=== PATIENT | male | born 2000 | race Two or more races ===

== ENCOUNTER 2019-10-22 15:10 | Emergency (ER) | payer SELFPAY ==
--- NOTE | 2019-10-22 16:06 | ER Document Report ---
ED General <NITIN REILLY - Last Filed: 10/22/19 21:12> <RUKHSANA LOPEZ - Last Filed: 10/23/19 16:21> <BRIELLEJOHN JERONIMO - Last Filed: 10/23/19 16:55> - General Chief Complaint: Suicidal Ideation Stated Complaint: SUICIDAL IDEATION Time Seen by Provider: 10/22/19 15:25 Primary Care Provider: [facility] [Outside] - Follow up as needed - HPI Notes: Chief complaint: Intoxication and suicidal ideation HPI: 19-year-old male brought in by EMS after they were called for a disturbed person lying in the middle of a busy street appearing intoxicated, cursing and expressing wish to commit suicide by throwing himself in front of a car. Bystanders state that the patient has psychiatric history although details are unclear and I note that he frequently drinks very heavily. He is an illegal alien and currently being pursued for deportation by ICE. EMS found the patient to be belligerent, swinging at them, spitting and biting and cursing them. Stating that he wanted to be left alone so he could . They were not able to establish an IV on him but were able to chemically restrain him with IM ketamine. They noted that he had an elevated temperature of 102 degrees. They transported him here without further intervention. (NITIN REILLY) - Related Data Allergies/Adverse Reactions: No Known Allergies Allergy (Verified 10/22/19 16:08) Past Medical History - General Cannot obtain history due to: Uncooperative, Altered mental status - Social History Smoking Status: Unknown if Ever Smoked Frequency of alcohol use: Heavy Family History: Reviewed & Not Pertinent <NITIN REILLY - Last Filed: 10/22/19 21:12> Review of Systems - Review of Systems -: Yes ROS unobtainable due to patient's medical condition <NITIN REILLY - Last Filed: 10/22/19 21:12> Physical Exam <NITIN REILLY - Last Filed: 10/22/19 21:12> - Vital signs Vitals: Temp Resp BP Pulse Ox 99.3 F 22 H 141/80 H 100 10/22/19 15:21 10/22/19 15:21 10/22/19 15:21 10/22/19 15:21 - Notes Notes: GENERAL: male appearing approximately stated age currently sedated secondary to ketamine. Heavy odor of alcohol present. SKIN: Good turgor no rashes. Scattered superficial abrasions of all 4 extremities. HEAD: Normocephalic atraumatic. EYES: Pupils mid position equal and sluggishly reactive to light with conjugate gaze present. Conjunctivae and sclerae clear. EARS: CANALS AND TMS CLEAR. NOSE: CLEAR. MOUTH: Moist mucosa. Good dentition. No stridor or edema. No drooling. NECK: Supple. No masses or thyromegaly. No adenopathy. Carotids 2+ without bruits. No JVD. BACK: Symmetrical. CHEST: Respirations unlabored. Breath sounds clear and symmetrical. HEART: Tachycardic. Regular rhythm. No murmur gallop or rub. ABDOMEN: Soft nontender without masses, organomegaly or rebound. Bowel sounds normally active. No bruits. GENITALIA: Deferred. EXTREMITIES: No edema. No calf tenderness. Cap refill less than 1.5 seconds. Dorsalis pedis and posterior tibial pulses 3+ and symmetrical. NEUROLOGICAL: Patient is obtunded. Responds to painful stimuli with symmetrical movement of extremities. GCS 8 (eyes 2 verbal 2 Motor 4) (NITIN REILLY) Course - Laboratory Result Diagrams: 10/22/19 15:20 10/22/19 15:20 - Diagnostic Test Radiology reviewed: Reports reviewed - Noncontrast head CT negative per radiologist. Portable chest x-ray shows no active disease per radiologist. <NITIN REILLY - Last Filed: 10/22/19 21:12> - Laboratory Result Diagrams: 10/22/19 15:20 10/23/19 09:00 <RUKHSANA LOPEZ - Last Filed: 10/23/19 16:21> - Laboratory Result Diagrams: 10/22/19 15:20 10/23/19 09:00 <JOHN HANNAH - Last Filed: 10/23/19 16:55> - Re-evaluation Re-evalutation: 10/22/19 21:14 This man appeared to be primarily under the influence of a large amount of alcohol when he came in. Blood alcohol was measured at 259. He had received ketamine in the field per EMS because of violent aggressive behavior. He required additional medication after he got here including IV Ativan and Haldol. Chen catheter was placed and we noted that his urine specimen was negative for drugs of abuse. We also did acetaminophen and salicylate level and neither were toxic. He had an elevated temperature and I was concerned about the possibility of meningoencephalitis. I vickey blood cultures and empirically gave him IV doses of Rocephin, vancomycin and acyclovir. We note however that he has no skin rashes and his neck is supple. I did an influenza swab and that was negative for influenza a and B. Swab from his throat was however subsequently positive for beta strep. I think this is likely to be the source of his fever. We also note we did a CK and while this was slightly elevated this was not a critical value approximately 325. I consulted the behavioral health service but they were unable to perform immediate assessment because of his level of intoxication. I have gone ahead and given him a dose of IM LA Bicillin to cover him for strep infection. I have also requested a rapid COVID screen which remains pending at this time. I anticipate that as he metabolizes off his alcohol we should be able to clear him medically and then have his behavioral assessment completed. (NITIN REILLY) - Vital Signs Vital signs: Temp Pulse Resp BP Pulse Ox 97.9 F 14 113/78 100 10/23/19 04:00 10/23/19 06:01 10/23/19 06:01 10/23/19 06:01 - Laboratory Laboratory results interpreted by me: 10/22/19 10/22/19 10/22/19 15:20 15:20 16:50 RBC 4.18 L MCH 33.9 H Lymph % (Auto) 48.8 H VBG pH 7.29 L VBG pCO2 23.3 L VBG HCO3 11.0 L Potassium 3.4 L Chloride 113 H Carbon Dioxide 17 L Anion Gap BUN 6 L Glucose 116 H Calcium 7.8 L Creatine Kinase 325 H Urine Blood Salicylates < 1.0 L Acetaminophen < 10 L 10/22/19 10/23/19 18:00 09:00 RBC MCH Lymph % (Auto) VBG pH VBG pCO2 VBG HCO3 Potassium Chloride Carbon Dioxide Anion Gap 4 L BUN 6 L Glucose Calcium 8.2 L Creatine Kinase Urine Blood SMALL H Salicylates Acetaminophen - EKG Interpretation by Me Additional EKG results interpreted by me: 10/22/19 21:13 Twelve-lead EKG from 1841 hrs. reviewed contemporaneously by me showing normal sinus rhythm with a rate of 99 and a QRS axis of -1 degrees as well as normal intervals. Patient had ST elevations consistent with early repolarization pattern. (NITIN REILLY) Discharge <NITIN REILLY - Last Filed: 10/22/19 21:12> <RUKHSANA LOPEZ - Last Filed: 10/23/19 16:21> <BRIELLEJOHN JERONIMO - Last Filed: 10/23/19 16:55> - Discharge Clinical Impression: Suicidal ideation, Acute streptococcal pharyngitis Altered mental status Qualifiers: Altered mental status type: unspecified Qualified Code(s): R41.82 - Altered mental status, unspecified Alcohol intoxication Qualifiers: Complication of substance-induced condition: with unspecified complication Qualified Code(s): F10.929 - Alcohol use, unspecified with intoxication, unspecified Fever Qualifiers: Fever type: due to other condition Qualified Code(s): R50.81 - Fever presenting with conditions classified elsewhere Condition: Stable Disposition: HOME, SELF-CARE Additional Instructions: You have been evaluated by both medical and behavioral health teams for suicidal ideation and alcohol use disorder and have been deemed appropriate for discharge. While in the emergency department you received the following s ervices: Medical screening and assessment, nursing services, dietary services, pharmacological services, one-on-one counseling and/or psychotherapy, environmental services, and continuous observation by a patient campus safety officer. Per your conversation with behavioral health, please follow up with [facility] when you are able to be medically accepted. You have been explained and provided with detox/substance abuse and outpatient mental health resource lists with the options for [facility] highlighted. ACUTE ALCOHOL INTOXICATION and ALCOHOL ABUSE: Your evaluation revealed very high levels of alcohol. You can from drinking a large amount of alcohol rapidly! Further, there's the risk of falls, traffic accidents, and fights. A high portion (about 50 percent) of the serious injuries seen in hospital emergency rooms are caused by alcohol. Alcohol overdosage is usually due to an underlying emotional or psychiatric problem. You may benefit from counselling. If "binge" drinking is an ongoing problem for you, or if you drink ANY AMOUNT of alcohol EVERY day, you most likely have a tendency to alcoholism. You should avoid alcohol totally. We can refer you for treatment. Persons with alcohol problems are often also prone to other addictions -- you should discuss any use of medications or drugs with the doctor. You should be watched at home for the next several hours by someone who has not been drinking. Get extra fluids for the next 24 hours. Call the doctor if there is repeated vomiting, increasing headache, decreasing level of alertness, or any other worsening. CHRONIC ALCOHOLISM and ALCOHOL ABUSE: Your evaluation reveals evidence of chronic alcoholism, an addiction to alcohol. The tendency to alcoholism may be inherited. Chronic use of alcohol weakens muscles, causes fatty deposits in the liver, damages the stomach, makes you more prone to infections, and can cause defects in unborn children. In the long run, brain atrophy and cirrhosis of the liver result. You are also at greater risk for certain types of cancer, such as cancer of the mouth, throat, stomach, and liver. Counselling services are available to help you. In-hospital treatment programs often help. Support groups such as Alcoholics Anonymous can be very useful in beating this addiction. Your physician can make a referral for you. As alcoholics often are prone to other addictions, you should discuss your use of any other medications with the doctor. SUICIDAL IDEATION: Suicidal ideation is a common medical term for thoughts about suicide, whic h may be as detailed as a formulated plan, without the suicidal act itself. Although most people who undergo suicidal ideation do not commit suicide, some go on to make suicide attempts. The range of suicidal ideation varies greatly from fleeting to detailed planning, role playing, and unsuccessful attempts. While thoughts about suicide are common, most people do not carry out serious actions to commit suicide. Based upon your evaluation and discussion with you, we do not believe you are currently at risk to act upon your thoughts of suicide. You have agreed to return to the Emergency Department, at any time, if you feel inclined to act upon your suicidal thoughts. AT ANY TIME, IF YOUR SYMPTOMS CHANGE SIGNIFICANTLY OR WORSEN OR YOU DEVELOP NEW SYMPTOMS, RETURN TO THE EMERGENCY DEPARTMENT IMMEDIATELY FOR RE-EVALUATION. Referrals: [facility] [Outside] - Follow up as needed
[2019-10-22 16:16] LABS: ABSOLUTE LYMPHOCYTES (AUTO) 2.1 10^3/uL (0.5-4.7); ABSOLUTE MONOCYTES (AUTO) 0.3 10^3/uL (0.1-1.4); ABSOLUTE NEUT (AUTO) 1.8 10^3/uL (1.7-8.2); BASOPHILS % (AUTO) 0.9 % (0-2); EOSINOPHILS % (AUTO) 0.6 % (0-6); HEMATOCRIT 40.5 % (37.9-51.0); HEMOGLOBIN 14.2 g/dL (13.5-17.0); LYMPHOCYTES % (AUTO) 48.8 % (13-45); MEAN CORPUSCULAR HEMOGLOBIN 33.9 pg (27.0-33.4); MEAN CORPUSCULAR VOLUME 97 fl (80-97); MONOCYTES % (AUTO) 7.5 % (3-13); PLATELET COUNT 248 10^3/uL (150-450); RED BLOOD COUNT 4.18 10^6/uL (4.35-5.55); RED CELL DISTRIBUTION WIDTH 13.1 % (11.5-14.0); SEGMENTED NEUTROPHILS % (AUTO) 42.2 % (42-78); TOTAL CELLS COUNTED % (AUTO) 100 %; WHITE BLOOD COUNT 4.4 10^3/uL (4.0-10.5)
[2019-10-22 16:29] LABS: ALBUMIN 3.8 g/dL (3.5-5.0); ALCOHOL 251 mg/dL (NONE DETECTED); ALKALINE PHOSPHATASE 75 U/L (38-126); ANION GAP 12 (5-19); ASPARTATE AMINO TRANSFERASE 50 U/L (17-59); BILIRUBIN,TOTAL 0.2 mg/dL (0.2-1.3); BLOOD UREA NITROGEN 6 mg/dL (7-20); CALCIUM 7.8 mg/dL (8.4-10.2); CARBON DIOXIDE 17 mmol/L (22-30); CHLORIDE 113 mmol/L (98-107); CREATINE KINASE 325 U/L (55-170); GLUCOSE 116 mg/dL (75-110); POTASSIUM 3.4 mmol/L (3.6-5.0); TOTAL PROTEIN 6.5 g/dL (6.3-8.2)
--- NOTE | 2019-10-22 16:34 | RADIOLOGY REPORT (SQ) ---
EXAM DESCRIPTION: CHEST SINGLE VIEW IMAGES COMPLETED DATE/TIME: 10/22/2019 4:17 pm REASON FOR STUDY: fever COMPARISON: None. NUMBER OF VIEWS: One view. TECHNIQUE: Single frontal radiographic view of the chest acquired. LIMITATIONS: None. FINDINGS: LUNGS AND PLEURA: No opacities, masses or pneumothorax. No pleural effusion. MEDIASTINUM AND HILAR STRUCTURES: No masses. Contour normal. HEART AND VASCULAR STRUCTURES: Heart normal in size. Normal vasculature. BONES: No acute findings. HARDWARE: None in the chest. OTHER: No other significant finding. IMPRESSION: NO SIGNIFICANT RADIOGRAPHIC FINDING IN THE CHEST. TECHNICAL DOCUMENTATION: JOB ID: [id number] 2010 [employer]- All Rights Reserved Reading location - IP/workstation name: [email or web address]
[2019-10-22] MEDS ORDERED: ACETAMINOPHEN 650 MG SUPP.RECT PR ONE (16:39)
[2019-10-22 16:40] LABS: ACETAMINOPHEN < 10 ug/mL (10-30); SALICYLATE < 1.0 mg/dL (2.0-20.0)
[2019-10-22] MEDS ORDERED: VANCOMYCIN HCL INJ 1000 MG VIAL IV ONE (16:40)
[2019-10-22] MEDS ORDERED: CEFTRIAXONE 1 GM/D5W RTU 1 GM/50 ML RTUPB IV ONE (16:40)
[2019-10-22] MEDS ORDERED: ACYCLOVIR SODIUM INJ/PF 500 MG/10 ML SDV IV ONE (17:02)
[2019-10-22 17:22] LABS: INTERNATIONAL RATION (INR) 1.01; PROTHROMBIN TIME 13.3 SEC (11.4-15.4)
[2019-10-22] MEDS ORDERED: LORAZEPAM INJ 2 MG/1 ML VIAL IV ONE (17:29)
[2019-10-22 17:34] LABS: A TYPE INFLUENZA AG NEGATIVE (NEGATIVE); B INFLUENZA AG NEGATIVE (NEGATIVE)
[2019-10-22] MEDS: NORMAL SALINE 1000 ML 1,000 ML IV PRN ×2 (17:35→18:24)
--- NOTE | 2019-10-22 17:43 | RADIOLOGY REPORT (SQ) ---
EXAM DESCRIPTION: CT HEAD WITHOUT IMAGES COMPLETED DATE/TIME: 10/22/2019 5:20 pm REASON FOR STUDY: Fever and AMS COMPARISON: None. TECHNIQUE: Axial images acquired through the brain without intravenous contrast. Images reviewed wi th bone, brain and subdural windows. Additional sagittal and coronal reconstructions were generated. Images stored on PACS. All CT scanners at this facility use dose modulation, iterative reconstruction, and/or weight based d osing when appropriate to reduce radiation dose to as low as reasonably achievable (ALARA). [facility]: Dose Right [facility]: CareDose [facility]: Dose Right [facility]: Teradose 4D [facility]: Smart MissingLINK RADIATION DOSE: CT Rad equipment meets quality standard of care and radiation dose reduction techniq ues were employed. CTDIvol: 53.2 mGy. DLP: 991 mGy-cm. LIMITATIONS: None. FINDINGS: VENTRICLES: Normal size and contour. The cisterns are patent. CEREBRUM: No masses. No hemorrhage. No midline shift. No evidence for acute infarction. Normal gra y/white matter differentiation. No areas of low density in the white matter. CEREBELLUM: No masses. No hemorrhage. No alteration of density. No evidence for acute infarction. EXTRAAXIAL SPACES: No fluid collections. No masses. ORBITS AND GLOBE: No intra- or extraconal masses. Normal contour of globe without masses. CALVARIUM: No fracture. PARANASAL SINUSES: No fluid or mucosal thickening. SOFT TISSUES: No mass or hematoma. OTHER: No other significant finding. IMPRESSION: 1. No acute intracranial abnormality. EVIDENCE OF ACUTE STROKE: NO. COMMENT: Quality ID # [id number]: Final reports with documentation of one or more dose reduction techniques (e.g., Automated exposure control, adjustment of the mA and/or kV according to patient size, use of iterative reconstruction technique) TECHNICAL DOCUMENTATION: JOB ID: [id number] 2010 [email or web address]- All Rights Reserved Reading location - IP/workstation name: [email or web address]
[2019-10-22 18:04] LABS: VENOUS BLOOD BASE EXCESS -13.8 mmol/L; VENOUS BLOOD PCO2 23.3 mmHg (35-63); VENOUS BLOOD PH 7.29 (7.30-7.42)
--- NOTE | 2019-10-22 18:06 | PSYCHOLOGICAL NOTE ---
Psych Note - Psych Note Date seen by psych provider: 10/22/19 Time seen by psych provider: 16:15 Psych Note: Clinical attempted to evaluate. Patient was administered Ketamine and Ativan, and is unable to engage with clinician. Patient is in restraints. Patient's AMBER is 251. Per chart review: Patient was brought in by EMS after they were called for a disturbed person lying in the middle of a busy street appearing intoxicated, cursing and expressing wish to commit suicide by throwing himself in front of a car. Bystanders state that the patient has psychiatric history although details are unclear and I note that he frequently drinks very heavily. He is an illegal alien and currently being pursued for deportation by ICE. EMS found the patient to be belligerent, swinging at them, spitting and biting and cursing them. Stating that he wanted to be left alone so he could . Impression/Plan: Patient is sedated and unable to engage with clinician. Patient will be reevaluated. Dr. Nguyen was consulted on the care and management of this patient; attending physician is in agreement with recommendations and disposition.
[2019-10-22 18:08] LABS: APPEARANCE,URINE CLEAR; BILIRUBIN,URINE NEGATIVE (NEGATIVE); COLOR,URINE STRAW; GLUCOSE, URINE NEGATIVE (NEGATIVE); KETONES,URINE NEGATIVE (NEGATIVE); PROTEIN,URINE NEGATIVE (NEGATIVE); URINE SPECIFIC GRAVITY 1.003; UROBILINOGEN,URINE NEGATIVE mg/dL (<2.0)
[2019-10-22 18:19] LABS: APPEARANCE,URINE CLEAR; BILIRUBIN,URINE NEGATIVE (NEGATIVE); COLOR,URINE STRAW; GLUCOSE, URINE NEGATIVE (NEGATIVE); KETONES,URINE NEGATIVE (NEGATIVE); LEUKOCYTE ESTERASE,URINE NEGATIVE (NEGATIVE); NITRITE,URINE NEGATIVE (NEGATIVE); PROTEIN,URINE NEGATIVE (NEGATIVE); URINE SPECIFIC GRAVITY 1.003; UROBILINOGEN,URINE NEGATIVE mg/dL (<2.0)
[2019-10-22] MEDS ORDERED: HALOPERIDOL LACTATE INJ 5 MG/1 ML VIAL IV ONE (18:24)
[2019-10-22 18:35] LABS: URINE AMPHETAMINES SCREEN NEGATIVE; URINE BARBITURATES SCREEN NEGATIVE; URINE BENZODIAZEPINES SCREEN NEGATIVE; URINE COCAINE SCREEN NEGATIVE; URINE MARIJUANA (THC) SCREEN NEGATIVE; URINE METHADONE SCREEN NEGATIVE; URINE PHENCYCLIDINE SCREEN NEGATIVE
[2019-10-22] MEDS ORDERED: PENICILLIN G BENZATHINE 1.2 MILLION UNIT/2 ML DISP.SYRIN IM ONE (19:32)
[2019-10-22] MEDS ORDERED: RINGERS SOLUTION,LACTATED 1,000 ML IV ONE (22:30)
[2019-10-23 09:30] LABS: BLOOD UREA NITROGEN 6 mg/dL (7-20); CALCIUM 8.2 mg/dL (8.4-10.2); CARBON DIOXIDE 26 mmol/L (22-30); CHLORIDE 107 mmol/L (98-107); GLUCOSE 89 mg/dL (75-110); POTASSIUM 3.8 mmol/L (3.6-5.0)
[2019-10-23 09:39] LABS: ANION GAP 4 (5-19)
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
[2019-10-23 17:12] VITALS: BP 140/86
--- NOTE | 2019-10-23 18:24 | EKG REPORT ---
SEVERITY:- OTHERWISE NORMAL ECG - SINUS TACHYCARDIA ST ELEV, PROBABLE NORMAL EARLY REPOL PATTERN : Confirmed by: Katarzyna Wilkinson MD 23-Oct-2019 18:24:17
== END 2019-10-23 17:13 | disposition home or self-care (01) ==
LOC: ER 15:10
DX: J02.0 Streptococcal pharyngitis (principal); R45.851 Suicidal ideations; R41.82 Altered mental status, unspecified; F10.929 Alcohol use, unspecified with intoxication, unspecified; Y90.8 Blood alcohol level of 240 mg/100 ml or more; R50.81 Fever presenting with conditions classified elsewhere; Z20.828 Contact with and (suspected) exposure to other viral communicable diseases
CPT/HCPCS: 93005; 99285; 96372; 96361; 96375; 96365; 96367; 96368; 36415; 87040; 87880; 80307 ×4; 82550; 83605; 83735; 85025; 85610; 87635; 87077; 80048; 80053; 81001; 87186; 82803; 87804; 87150 ×26; 71045; 70450; 93010; J0133; J1630; J0561; J2060; J7030; J7120; J3370; J0696